=== PATIENT | male | born 1945 | race Caucasian/White ===

== ENCOUNTER 2021-06-27 11:59 | Inpatient (IN) | payer MEDICARE, OTHER | END 2021-06-27 14:15 | disposition short-term general hospital (02) | DRG 272 | LOC: CDU 12:50 | PROVIDERS: ADMIT Internal Medicine Cardiovascular Disease | PROC: 5A02210 Assistance with Cardiac Output using Balloon Pump, Continuous (ICD-10-PCS; principal; 2021-06-27) | PROC: B2111ZZ Fluoroscopy of Multiple Coronary Arteries using Low Osmolar Contrast (ICD-10-PCS; 2021-06-27) | PROC: 4A023N7 Measurement of Cardiac Sampling and Pressure, Left Heart, Percutaneous Approach (ICD-10-PCS; 2021-06-27) | PROC: B2151ZZ Fluoroscopy of Left Heart using Low Osmolar Contrast (ICD-10-PCS; 2021-06-27) | DX: I21.09 ST elevation (STEMI) myocardial infarction involving other coronary artery of anterior wall (principal); I25.10 Atherosclerotic heart disease of native coronary artery without angina pectoris; I25.5 Ischemic cardiomyopathy; I10 Essential (primary) hypertension; Z20.822 Contact with and (suspected) exposure to COVID-19; F17.220 Nicotine dependence, chewing tobacco, uncomplicated; Z82.49 Family history of ischemic heart disease and other diseases of the circulatory system | CPT/HCPCS: 99152; 99153; C1769; C1894; G0378; J0461; J1644; J2250; J3010; J7040; Q9965 ==